=== PATIENT | male | born 1950 | race Caucasian/White ===

== ENCOUNTER → 2021-10-26 09:37 | Outpatient (CLI) | payer MEDICARE, MEDICAID, SELFPAY ==
--- NOTE | 2021-10-26 09:46 | XR_ITS ---
FINAL REPORT CLINICAL HISTORY: right hip pain FINDINGS: RIGHT HIP Three views demonstrate no acute fracture or dislocation. There are degenerative changes of both hips, left greater than right. There is postoperative changes in the lower pelvis. Residual contrast is seen in multiple presumed diverticula. Note is made of mild vascular calcification. IMPRESSION: Degenerative changes, left greater than right. Reviewed, Interpreted and Dictated by Landry Ruiz III, MD Transcribed by Kristyn George Authenticated by Landry Ruiz III, MD on 10/26/2021 11:40:56 AM [facility]
--- NOTE | 2021-10-26 09:46 | XR_ITS ---
FINAL REPORT CLINICAL HISTORY: right knee pain FINDINGS: RIGHT KNEE Four views demonstrate no acute fracture or dislocation. Mild degenerative changes are present. There is a small joint effusion. No soft tissue abnormality is seen. IMPRESSION: Mild degenerative changes and small joint effusion. Reviewed, Interpreted and Dictated by Landry Ruiz III, MD Transcribed by Kristyn George Authenticated by Landry Ruiz III, MD on 10/26/2021 11:41:06 AM [facility]
== END ==
PROVIDERS: Visit Provider Orthopaedic Surgery
DX: M25.561 Pain in right knee (principal); M25.551 Pain in right hip
CPT/HCPCS: 73502; 73564

== ENCOUNTER → 2022-05-31 11:11 | Outpatient (CLI) | payer MEDICARE, MEDICAID, SELFPAY ==
--- NOTE | 2022-05-31 11:16 | XR_ITS ---
FINAL REPORT CLINICAL HISTORY: left hip pain COMPARISON: October 26, 2021 FINDINGS: 2 views of the left hip with an AP pelvis were obtained. There is no acute fracture or dislocation. There is moderate degenerative change of the left hip. Postoperative changes are seen in the lower pelvis. IMPRESSION: Moderate left hip degenerative change. Reviewed, Interpreted and Dictated by Landry Ruiz III, MD Transcribed by Valeriy Charles Authenticated and [facility]
== END ==
PROVIDERS: Visit Provider Orthopaedic Surgery
DX: M25.552 Pain in left hip (principal)
CPT/HCPCS: 73502

== ENCOUNTER → 2022-06-15 14:41 | Outpatient (CLI) | payer MEDICARE, SELFPAY | PROVIDERS: Visit Provider Orthopaedic Surgery | DX: Z01.812 Encounter for preprocedural laboratory examination (principal); Z20.822 Contact with and (suspected) exposure to COVID-19 | CPT/HCPCS: C9803; U0003; U0005 ==

== ENCOUNTER 2022-07-15 07:46 | Day surgery (SDC) | payer MEDICARE, MEDICAID, SELFPAY ==
[2022-07-15 08:31] VITALS: BP 174/102; PULSE 58; RESP 20; TEMP 36.3; O2SAT 99; BMI 30.1
--- NOTE | 2022-07-15 09:39 | XR_ITS ---
FINAL REPORT CLINICAL HISTORY: LT HIP INJECTION IN OR FT: 1:14 FINDINGS: Two fluoroscopic spot images of the left hip were obtained. 1.14 seconds of fluoroscopy time is reported. IMPRESSION: 1.14 seconds of fluoroscopy time. Reviewed, Interpreted and Dictated by Landry Ruiz III, MD Transcribed by Carine Hall Authenticated and [facility]
[2022-07-15 09:40] VITALS: BP 118/76; PULSE 62; RESP 17; TEMP 36.8; O2SAT 90
[2022-07-15 09:50] VITALS: BP 120/71; PULSE 63; RESP 18; O2SAT 97
[2022-07-15 10:00] VITALS: BP 134/79; PULSE 56; RESP 18; O2SAT 97
[2022-07-15 10:10] VITALS: BP 139/79; PULSE 56; RESP 18; O2SAT 99
--- NOTE | 2022-07-15 10:39 | EXP.ANES.CKL ---
[facility] Medical History Atrial fibrillation COPD (chronic obstructive pulmonary disease) Deep vein thrombosis (DVT) Enlarged prostate Liver cancer Surgical History History of colon resection History of inguinal hernia repair History of myringoplasty History of organ or tissue transplant Family History (Updated 07/15/22 @ 08:29 by Kaylin Moreno RN) Father Family history of myocardial infarction Other Family history of diabetes mellitus type II Social History (Updated 07/15/22 @ 08:31 by Kaylin Moreno RN) Smoking Status: Never smoker alcohol intake: never substance use type: marijuana counseling given: No current occupational status: employed and retired Travel in the last 8 weeks: Inside the [facility] housing: house lives independently: Yes marital status: special damaris needs: No agree to transfusion: No do you feel safe at home: Yes victim of physical abuse: No victim of emotional abuse: No victim of sexual abuse: No would you like helpful sources: No [facility] Anesthesia Checklist Patient Identification Patient Identification: Verbal (Name & ) Structural Data Admitted From: Home Planned Operative Procedure/s: l hip[ injection Consent for Planned Operative Procedure(s) Verified: Yes Additional verifications Anesthesia Reactions: No Hx Blood Transfusions: No Blood Transfusion Reaction: No Airway Assessment C-Spine Mobility Assessed: Yes Dentition: Poor Dentition Neurological Assessment Level of Consciousness: Awake, Alert and Appropriate Anesthesia Plan Anesthesia Risk discussed: Yes Anesthesia Plan: Verified ASA Class: III Anesthesia Type: MAC
[2022-07-15 11:03] VITALS: TEMP 43
--- NOTE | 2022-07-15 12:04 | EXP.OP.NOTE ---
Date of procedure: 07/15/22 Pre-op Diagnosis:: Left hip arthritis Post-op Diagnosis:: Same Procedure performed:: Left hip arthrogram, fluoroscopic guided corticosteroid injection Surgeon:: Isael Moe JR, MD INSPECTOR SOLDERING:: David Murphy Anesthesia: MAC Estimated blood loss (mL): 0 Clinical Note:: 71-year-old male with left hip arthritis, had seen Dr. Fabian, Dr. Beltran subsequently, was interested in left hip fluoroscopic guided corticosteroid injection in order to delineate between hip and lumbar spine pathology as well as to provide some relief from his hip arthritis. We discussed left fluoroscopic guided hip arthrogram with corticosteroid injection. He was amenable with the plan. We discussed the risk and benefits of surgery. Risks included but were not limited to pain, bleeding, infection, damage to adjacent structures, need for further surgery, wound healing complications, loss of limb, . Patient expressed verbal consent and written consent was obtained for the above procedure. Operative findings:: Intra-articular contrast noted. Operative note:: Patient was identified in preoperative holding. Operative site was marked in indelible ink. History, physical, consent were reviewed and updated. Patient was surrendered to the anesthesia team, taken to the operative suite, placed supine on a well-padded operative table. Anesthesia was induced. The operative extremity was prepped and draped in the usual sterile fashion. The operative team donned sterile gowns and gloves and a timeout was called. All in attendance agreed regarding the patient's identity, procedure, operative site. Weight-based dose of antibiotics was given prior to incision. Under fluoroscopic guidance I placed an 18-gauge spinal needle into the hip joint via anterior approach. I palpated the femoral artery, confirmed it was not pierced. I injected contrast, noted intra-articular placement of the contrast solution, then placed 2 mL of 40 mg/mL Kenalog, 2 mL of 1% lidocaine without epinephrine, 2 mL of Marcaine without epinephrine. Sterile dressing was applied. Counts were correct x2. There were no apparent complications. I was present and scrubbed for the entire procedure. Condition: stable Disposition: PACU Complications:: None
[2022-07-16 15:16] LABS: POC Glucose,Bedside 126 (70-110)
== END 2022-07-15 10:11 | disposition home or self-care (01) ==
PROVIDERS: PCP Family Medicine; Visit Provider Orthopaedic Surgery
DX: M16.12 Unilateral primary osteoarthritis, left hip (principal); Z79.899 Other long term (current) drug therapy; I48.91 Unspecified atrial fibrillation; Z79.01 Long term (current) use of anticoagulants; Z94.4 Liver transplant status
CPT/HCPCS: 20610; 73502; 76000; 82962; Q9967

== ENCOUNTER 2022-11-15 17:00 | Outpatient (RCR) | payer MEDICARE, SELFPAY | END 2022-11-15 17:05 | disposition home or self-care (01) | LOC: PT 17:00 | PROVIDERS: PCP Family Medicine; Visit Provider Orthopaedic Surgery | DX: M54.50 Low back pain, unspecified (principal); M54.16 Radiculopathy, lumbar region; M25.552 Pain in left hip | CPT/HCPCS: 97010; 97014; 97110; 97140; 97163; 97164; 97530; G0283 ==

== ENCOUNTER 2022-12-01 11:03 | Outpatient (RCR) | payer MEDICARE, SELFPAY ==
--- NOTE | 2022-12-01 12:00 | HMH.PTOPEV ---
PT Outpatient Evaluation Rehab PT Outpatient Evaluation Start: 12/01/22 11:08 Freq: Status: Active Protocol: Document 12/01/22 11:08 SALLY (Rec: 12/01/22 11:54 SALLY [id number]) E-signed By Tea Joseph, PT Outpatient Therapy Subjective History Subjective History Pt is a 72 y/o male who reports chronic right medial knee pain for years. Pt reports worsening of right knee symptoms 2-3 months ago when his left hip/back started hurting. Pt reports he had an injection in the right knee about a month ago which helped with pain and he recently had a second injection on 11/11/22 . Pt reports the injection helped but he continues to have pain with prolonged standing and walking on level and elevated ground. Pt reports he has hills outside his home he has to traverse which aggravates pain as well. Pt reports his last xray of the right knee was in the beginning of 2021 showing mild degenerative changes and small joint effusion. Pt reports history of arthroscopic repair of the right knee 15-17 years ago but following he slipped after the surgery and reinjured it. Pt denies paresthesia of the RLE. Medical History: Atrial fibrrilation, high blood pressure, liver transplant in 2015 due to Hep C, hernia repair, R knee scope Chief Complaint Pain,Clicks,Catches/Locks Symptoms Relieved By Rest/Positioning Symptoms Aggravated By Physical Activity,Walking Prior Functional Limitations None Current Functional Limitations Standing,Sitting,Walking, Stairs Symptom Description Intermittent Level of pain today (0-10) 3 Pain scale - at its best (0-10) 0 Pain scale - at its worst (0-10) 6 Hip/Knee Eval Gait Observation General Gait Pattern Observation Antalgic Gait,Wide Based Gait,
== END 2022-12-01 11:05 | disposition home or self-care (01) ==
LOC: PT 11:03
PROVIDERS: PCP Family Medicine; Visit Provider Orthopaedic Surgery
DX: M17.11 Unilateral primary osteoarthritis, right knee (principal)
CPT/HCPCS: 97163

== ENCOUNTER → 2022-12-29 10:46 | Outpatient (CLI) | payer MEDICARE, SELFPAY ==
--- NOTE | 2022-12-29 11:08 | MR_ITS ---
FINAL REPORT CLINICAL HISTORY: SEPTIC ARTHRITIS OF LEFT HIP. HIP PAIN. PAIN WHEN WALKING COMPARISON: None FINDINGS: Multiplanar MR imaging of the left hip was performed without contrast. There is no evidence of fracture or dislocation. There is moderate left hip joint space narrowing. There is no osteochondral lesion in the lateral femoral head measuring 1.5 cm. There are mild hypertrophic changes at the lateral acetabular margin. A small joint effusion is noted. The abductor tendons are intact. IMPRESSION: Left hip joint space narrowing with osteochondral injury probably secondary to underlying osteoarthritis. Small joint effusion may be related to osteoarthritis. Reviewed, Interpreted and Dictated by Cristi Alvarado MD Transcribed by Arelis Avalos Authenticated and [facility]
== END ==
PROVIDERS: PCP Family Medicine; Visit Provider Orthopaedic Surgery
DX: M00.852 Arthritis due to other bacteria, left hip (principal); Z94.4 Liver transplant status
CPT/HCPCS: 73721

== ENCOUNTER 2023-03-02 13:03 | Day surgery (SDC) | payer MEDICARE, SELFPAY ==
[2023-01-05 14:20] VITALS: BMI 30.8
[2023-02-22 13:16] VITALS: BMI 30.7
[2023-03-02 13:35] VITALS: BP 170/93; PULSE 65; RESP 18; TEMP 36.7; O2SAT 98
--- NOTE | 2023-03-02 14:29 | EXP.ANES.CKL ---
[facility] Disclaimer: The information contained in this section may have been updated after the patient was seen, as this information can be updated by other users. Medical History Atrial fibrillation COPD (chronic obstructive pulmonary disease) Deep vein thrombosis (DVT) Enlarged prostate Liver cancer Surgical History History of ankle surgery right History of colon resection History of colostomy reversal History of inguinal hernia repair x5 History of myringoplasty History of organ or tissue transplant Hx of abdominal surgery Hx of colostomy Hx of right knee surgery Family History Father Family history of myocardial infarction Other Family history of diabetes mellitus type II Family history of hyperlipidemia Social History Smoking Status: Never smoker alcohol intake: never substance use type: marijuana counseling given: No current occupational status: employed and retired Travel in the last 8 weeks: Inside the [facility] household members: none housing: house lives independently: Yes marital status: education level: college caffeine: Yes special damaris needs: No agree to transfusion: No do you feel safe at home: Yes victim of physical abuse: No victim of emotional abuse: No victim of sexual abuse: No would you like helpful sources: No [facility] Anesthesia Checklist Patient Identification Patient Identification: Arm Band and Verbal (Name & ) Structural Data Planned Operative Procedure/s: colonoscopy Consent for Planned Operative Procedure(s) Verified: Yes Verified Documents: Surgical Consent and History and Physical NPO Status Verified Time NPO: 00:00 Additional verifications Anesthesia Reactions: No Hx Blood Transfusions: No Blood Transfusion Reaction: No Airway Assessment C-Spine Mobility Assessed: Yes TMJ Mobility Assessed: Yes Dentition: Good Dentition Neurological Assessment Level of Consciousness: Awake and Alert Hx Seizures: No Anesthesia Plan Anesthesia Risk discussed: Yes ASA Class: III Anesthesia Type: MAC
[2023-03-02 14:33] VITALS: O2SAT 98
--- NOTE | 2023-03-02 14:52 | HMH.SCOPE ---
Procedure: Date: 03/02/23 Patient Date of :: 1950 Procedure Performed:: Diagnostic colonoscopy Indications:: Change in bowel habits, chronic pain Performing Provider:: Salina Schwartz MD Referring Provider:: Deonna Castillo Sedation:: Propofol Procedure:: After placing the patient in the left lateral decubitus position, the colonoscopy was gently inserted into the rectum and under direct visualization advanced to the cecum which was identified by transillumination in the right lower quadrant, identification of the ileocecal valve, appendiceal orifice, and cecal strap. Color, texture, mucosa, and anatomy of the colon were carefully examined with the scope. Findings:: Anal canal: normal Rectum: normal Sigmoid colon: Resected. Anastomotic site widely patent. Descending colon: normal without polyps or inflammatory changes, diverticulosis Splenic flexure: normal Transverse colon: normal without polyps or inflammatory changes Hepatic flexure: normal Ascending colon: normal without polyps or inflammatory changes Cecum: normal Terminal ileum: not visualized Impression: S/P sigmoid resection anatomy with scattered residual diverticulosis. No evidence of obstruction or stenosis. Recommendations:: Follow up examination in about FIVE years or so, sooner if clinically indicated. Complications:: None Estimated blood obtained (mL): 0
[2023-03-02 14:53] VITALS: BP 110/63; PULSE 71; RESP 16; TEMP 36.3; O2SAT 96
[2023-03-02 15:03] VITALS: BP 111/61; PULSE 71; RESP 17; O2SAT 96
[2023-03-02 15:13] VITALS: BP 121/66; PULSE 64; RESP 18; O2SAT 94
[2023-03-02 15:23] VITALS: BP 137/99; PULSE 64; RESP 18; O2SAT 96
== END 2023-03-02 15:23 | disposition home or self-care (01) ==
PROVIDERS: PCP Family Medicine; Visit Provider Internal Medicine Gastroenterology
PROC: 0DJD8ZZ Inspection of Lower Intestinal Tract, Via Natural or Artificial Opening Endoscopic (ICD-10-PCS; CPT 45378; principal; 2023-03-02 13:30)
DX: K57.30 Diverticulosis of large intestine without perforation or abscess without bleeding (principal); R19.4 Change in bowel habit; Z79.899 Other long term (current) drug therapy; Z90.49 Acquired absence of other specified parts of digestive tract
CPT/HCPCS: 45378

== ENCOUNTER 2023-05-03 15:00 | Outpatient (RCR) | payer MEDICARE, SELFPAY | END 2023-05-03 15:05 | disposition home or self-care (01) | LOC: PT 15:00 | PROVIDERS: PCP Family Medicine; Visit Provider Orthopaedic Surgery | DX: M25.552 Pain in left hip (principal); Z96.642 Presence of left artificial hip joint | CPT/HCPCS: 97010; 97014; 97110; 97163; 97530; G0283 ==

== ENCOUNTER 2023-07-19 15:00 | Outpatient (RCR) | payer MEDICARE, SELFPAY ==
--- NOTE | 2023-05-16 17:10 | HMH.PTOPEV ---
PT Outpatient Evaluation Rehab PT Outpatient Evaluation Start: 05/16/23 16:54 Freq: Status: Active Protocol: Document 05/16/23 16:54 ROSI (Rec: 05/16/23 17:10 ROSI [id number]) E-signed By Yair Gerber, PT Outpatient Therapy Subjective History Subjective History This is the initial PT eval for Sharif Babin, 72 yowm who presents with c/o B knee pain, R worse than L, and recent L LUIS due to OA performed ~ 8 wks ago. He reports currently his R knee is the most painful areas and pops all the time when I bend it or squat down. He reports the pasin has been present for years, but gradually worse over the past 1-2 yrs. He reports he received B knee injection ~ 1 wk ago with a significant amount of improvement, but he continues to feel pain worse in the R knee. LEFS score: 53/80 Chief Complaint Pain,Stiff Symptom Type Ache Symptoms Relieved By Rest/Positioning Symptoms Aggravated By Standing,Walking Prior Functional Limitations None Current Functional Limitations Lifting,Housework,Standing, Squatting,Recreation Activity, Walking,Stairs Symptom Description Constant but Variable,Activity Dependent Level of pain today (0-10) 1 Pain scale - at its best (0-10) 0 Pain scale - at its worst (0-10) 4 Hip/Knee Eval Gait Observation General Gait Pattern Observation No Deviations/Normal Assistive Device Assistive Devices None / NA Palpation Tenderness right Knee Palpation Finding Tenderness Knee Palpation Overall Comment medial knee jt line 1/4 MMT bilateral Hip Flexion Strength Grade 4 Good Hip Abduction Strength Grade 4 Good Hip Adduction Strength Grade 5 Normal Hip Extension Strength Grade 4 Good Knee Extension Strength Grade 4 Good Knee Flexion Strength Grade 5 Normal ROM left Knee Extension Active Range of Motion ( 0 degrees) Knee Flexion Active Range of Motion ( 0-135 degrees) right Knee Extension Active Range of Motion ( -2 degrees) Knee Flexion Active Range of Motion ( 2-123 degrees) Special Tests Sciatic
--- NOTE | 2023-06-15 15:11 | HMH.RHREAS ---
Rehab Reassessment Rehab OP Re-assessment Start: 05/16/23 16:54 Freq: Status: Active Protocol: Document 06/15/23 15:05 PHORNE (Rec: 06/15/23 15:11 PHORNE [id number]) E-signed By Yair Gerber, PT Lower Extremity Functional Index Activities Today, do you or would you have any difficulty at all with: a.Any of your usual work, housework or A little bit of difficulty school activities b. Your usual hobbies, recreational or A little bit of difficulty sporting activities c. Getting into or out of the bath A little bit of difficulty d. Walking between rooms A little bit of difficulty e. Putting on your shoes or socks Moderate difficulty f. Squatting A little bit of difficulty g. Lifting an object, like a bag of A little bit of difficulty groceries from the floor h. Performing light activities around A little bit of difficulty your home i. Performing heavy activities around Moderate difficulty your home j. Getting into or out of a car A little bit of difficulty k. Walking 2 blocks Moderate difficulty l. Walking a mile Moderate difficulty m. Going up or down 10 stairs (about 1 Moderate difficulty flight of stairs) n. Standing for 1 hour A little bit of difficulty o. Sitting for 1 hour A little bit of difficulty p. Running on even ground Moderate difficulty q. Running on uneven ground Moderate difficulty r. Making sharp turns while running fast Moderate difficulty s. Hopping Moderate difficulty t. Rolling over in bed A little bit of difficulty LEFI Score Lower Extremity Functional Index Score 51 Rehab Re-assessment Subjective Subjective Pt reports pain in the R knee 2/10 intermittently. I just get these twinges sometimes, like if I turn my foot the wrong way when I'm walking. Objective Objective Notes R KNEE AROM: 0-131 deg R LE MMT: HIP FLEX 4+/5, HIP ABD 4+/5, HIP ADD 5/5, HIP EXT 5/5, KNEE EXT 4+/5, KNEE FLEX 5/5. TTP: R knee 0/4. Assessment Progress Assessment Progressing as Expected Assessment Notes Pt has shown improvements in overall LE strength, but continues to have mildly antalgic gait with intermittent pain. He cotninues to need skilled intervention to return to prior functional level. Patient goals met ST,2,3,4,5
--- NOTE | 2023-07-17 15:23 | HMH.RHREAS ---
Rehab Reassessment Rehab OP Re-assessment Start: 05/16/23 16:54 Freq: Status: Active Protocol: Document 07/17/23 15:12 PHOMARISA (Rec: 07/17/23 15:23 PHORNE [id number]) E-signed By Yair Gerber, PT Rehab Re-assessment Subjective Subjective I still get that pain in my right knee sometimes, and it pops a lot too. I pulled a muscle in my R thigh a few days ago walking on some uneven terrain. It feels like it's getting better, but it is still pretty stiff. Objective Objective Notes R KNEE AROM: 1-126 deg R LE MMT: HIP FLEX 4+/5, HIP ABD 4+/5, HIP ADD 5/5, HIP EXT 5/5, KNEE EXT 5/5, KNEE FLEX 5/5. TTP: R knee 0/4. Assessment Progress Assessment Progressing as Expected Assessment Notes Most likely that recen thigh muscle injury has decreased R knee AROM at this time vs previous reassessment. Pain remains limiting factor in his activity levels at home, with increased symptoms during walking. He continues to need skilled intervention to return to prior level of function. Patient goals met ST,2,3,4,5,6 Goals Not Met LT,2,3,4,5,6,7 Plan Plan Continue per initial POC. Frequency of Therapy 2 x/wk Duration of therapy 4 wks Time and Billing Re-Eval Time 15 Re-Eval Billing Units 1 PHYSICIAN CERTIFICATION: I certify the specified therapy services for Sharif Babin are required, authorized, and reviewed every 30 days.
== END 2023-07-19 15:05 | disposition home or self-care (01) ==
LOC: PT 15:00
PROVIDERS: PCP Family Medicine; Visit Provider Orthopaedic Surgery
DX: M16.12 Unilateral primary osteoarthritis, left hip (principal); Z96.642 Presence of left artificial hip joint; M17.10 Unilateral primary osteoarthritis, unspecified knee
CPT/HCPCS: 97010; 97014; 97110; 97112; 97140; 97163; 97164; 97530; 97535; G0283

== ENCOUNTER → 2023-07-26 10:51 | Outpatient (CLI) | payer MEDICARE, SELFPAY ==
--- NOTE | 2023-07-26 10:57 | XR_ITS ---
FINAL REPORT CLINICAL HISTORY: left knee pain COMPARISON: None FINDINGS: Three views of the left knee reveal no evidence of fracture or dislocation. The bony alignment is normal. There is mild degenerative change. There is no evidence of joint effusion. Vascular calcifications are noted. IMPRESSION: Mild degenerative change without acute abnormality identified. Reviewed, Interpreted and Dictated by Landry Ruiz III, MD Transcribed by Arelis Avalos Authenticated and [facility]
--- NOTE | 2023-07-26 10:57 | XR_ITS ---
FINAL REPORT CLINICAL HISTORY: right knee pain COMPARISON: 10/26/2021 FINDINGS: Three views of the right knee reveal no evidence of fracture or dislocation. The bony alignment is normal. There is [id number] degenerative change. There is medial compartment narrowing. A small joint effusion is noted. There are mild vascular calcifications. IMPRESSION: [id number] degenerative changes without acute abnormality identified. Reviewed, Interpreted and Dictated by Landry Ruiz III, MD Transcribed by Arelis Avalos Authenticated and [facility]
== END ==
PROVIDERS: PCP Family Medicine; Visit Provider Orthopaedic Surgery
DX: G89.29 Other chronic pain (principal); M25.562 Pain in left knee; M25.561 Pain in right knee
CPT/HCPCS: 73562

== ENCOUNTER 2023-09-27 09:47 | Outpatient (CLI) | payer MEDICARE, SELFPAY ==
--- NOTE | 2023-09-27 10:10 | XR_ITS ---
FINAL REPORT CLINICAL HISTORY: right knee pain COMPARISON: 07/26/2023 FINDINGS: Three views of the right knee reveal no evidence of fracture or dislocation. The bony alignment is normal. There is mild and moderate degenerative change. There is moderate medial compartment narrowing. There is no evidence of joint effusion. No localized soft tissue abnormality is identified. IMPRESSION: Mild and moderate degenerative change without acute abnormality identified. Reviewed, Interpreted and Dictated by Landry Ruiz III, MD Transcribed by Arelis Avalos Authenticated and [facility]
--- NOTE | 2023-09-27 10:10 | XR_ITS ---
FINAL REPORT CLINICAL HISTORY: left knee pain COMPARISON: 07/26/2023 FINDINGS: Three views of the left knee reveal no evidence of fracture or dislocation. The bony alignment is normal. There is mild degenerative change. There is no evidence of joint effusion. No localized acute soft tissue abnormality is seen. There are mild vascular calcifications. IMPRESSION: Mild degenerative change without acute abnormality identified. Reviewed, Interpreted and Dictated by Landry Ruiz III, MD Transcribed by Arelis Avalos Authenticated and [facility]
== END 2023-09-27 23:59 ==
PROVIDERS: PCP Family Medicine; Visit Provider Orthopaedic Surgery
DX: G89.29 Other chronic pain; M25.561 Pain in right knee; M17.12 Unilateral primary osteoarthritis, left knee
CPT/HCPCS: 73562

== ENCOUNTER 2023-12-01 13:04 | Outpatient (CLI) | payer MEDICARE, SELFPAY ==
--- NOTE | 2023-12-01 | CA_ITS ---
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 Medical History Medications: Omeprazole,,,,, Carvedilol,,,,, TAMSULOSIN,,,,, Albuterol,,,,, TACROLIMUS,,,,, RIvaROXABAN,,,,, Mycophenate Mofetil,,,,, Allergies: PENICILLINS, WARFARIN Cardiac Risk Factors: FHX of CAD Stress Test Details Test: LEXISCAN HR Resting HR: 64 bpm Max Heart Rate (APMHR): 145.798423 bpm Max HR Achieved: 91 bpm Target HR (85% APMHR): 123.819424 bpm % of APMHR: 62.76 Recovery HR: 65 bpm BP Resting BP: 150/80 mmHg Max BP: 150/80 mmHg Recovery BP: 133.0/76.0 mmHg ECG Resting ECG: AFIB, RIGHT AXIS DEVIATION, IVCD, OLD ANTEROSEPTAL ND Clinical Exercise duration: 04:00 min Highest Stage Achieved: Exercise capacity: 1.0 METs Stress ECG Conclusion PT HAD SOA, AND HEAD DISCOMFORT NO CP NO SIGNIFICANT CHANGES UNREMARKABLE LEXISCAN STRESS MYOVIEW IMAGES REPORTED SEPARATELY Test Summary REST . . . . . . . Sitting REST 03:57 . . 64 . 150/ 80 . . Stage 1 01:00 . . 74 . . . . Stage 2 01:00 . . 77 . . . . Stage 3 01:00 . . 77 . 136/ 67 . . Stage 4 01:00 . . 65 . 127/ 67 . Stop exercise at 04:00 RECOVERY 01:00 . . 60 . 147/ 72 . . RECOVERY 02:00 . . 67 . 147/ 72 . . RECOVERY 03:00 . . 70 . 142/ 79 . . RECOVERY 03:20 . . 68 . 133/ 76 . . Electronically signed by : Johnny Boyle MD 12/02/2023 09:03:46
--- NOTE | 2023-12-01 13:05 | NM_ITS ---
APPROVED REPORT Exam: Nuclear Stress Test Indication: Chest pain, SOB, Fatigue, A-fib, HTN, Family history Patient Location: Outpatient Stress Tech: Edel FRENCH Tech:Alicia BoothSHANA RT(R)(N) Ht: 5 ft 10 in Wt: 212 lbs HR: 64 bpm BP: 150/80 mmHg BSA: 2.14 m2 TID: 1.21 BMI: 30.4 History: Chest pain, SOB, Fatigue, A-fib, HTN, Family history Procedure: Patient received 0.4 mg of intravenous Lexiscan, resting heart rate 64 bpm, resting blood pressure 150/80 mmHg, with Lexiscan maximum heart rate achieved was 91 bpm which is % of the maximum predicted heart rate and blood pressure was 150/80 mmHg. With Lexiscan, patient denied any complaint of chest pain. Cardiac Stress and Resting SPECT Images: Cardiac Stress and Resting SPECT images were obtained using technetium 99m Myoview 32.0 mCi stress and 10.50 mCi at rest. Resting and stress imaging in supine and prone positions demonstrate a large sized, moderate, fixed perfusion defect in the inferior, inferoseptal, and septal LV gaston from the base and extending distally towards the inferoapical region. There is also increased transient ischemic dilatation ratio (TID 1.21), suggestive of possible multivessel disease or balanced ischemia. Gated imaging demonstrates normal global LV systolic function. There is mild hypokinesis of the inferior and septal LV gaston. LVEF is calculated at 60%. Conclusion: Large sized, moderate, fixed perfusion defect in the inferior, inferoseptal, and septal LV gaston from the base and extending distally towards the inferoapical region. There is also increased transient ischemic dilatation ratio (TID 1.21), suggestive of possible multivessel disease or balanced ischemia. Gated imaging demonstrates normal global LV systolic function. There is mild hypokinesis of the inferior and septal LV gaston. LVEF is calculated at 60%. Electronically signed by : Brunilda Velez MD 12/04/2023 22:18:36
--- NOTE | 2023-12-01 13:15 | CA_ITS ---
APPROVED REPORT EXAM: Comprehensive 2D, Doppler, and color-flow Echocardiogram Outpatient Clerk: Juany Foster, RT(R) Ht: 5 ft 10 in Wt: 212lbs BSA: 2.14 BP: 123/69 mmHg Indications: AFIB, Angina, COPD, CP, BAE, obesity, hx DVT, dyspnea, liver transplant recipient. 2D Dimensions Left Atrium 3.48 cm M: 3.0 - 4.0 LA Volume 78.60 mL LVOT 2.10 cm (M/F) 1.5-2.5 LA Volume Index 36.73 mL/m2 (M/F) 16-34 EF AP4 37.70 % GL Strain -14.1 % M-Mode Dimensions RVDd 3.04 cm (0.9-2.6) LVDd 5.52 cm (3.5-5.7) Ao Diam 3.48 cm (2.0-3.7) LVDs 3.93 cm (3.5-5.7) IVSd 0.75 cm (0.6-1.1) PWd 0.94 cm (0.6-1.1) EF (Teich) 54.90% FS 28.80% EDV (Teich) 148.70 mL ESV (Teich) 67.10 mL LV Diastology E Decel Time 150 (160-240 msec) E/A Ratio 2.5 LAT E' 6.0 (>= 10 cm/sec) E/LAT E' Ratio 13.95 (<= 14) Aortic Valve LVOT Max 83.0 (70-110 cm/s) KIM Index 1.43 cm2/m2 LVOT VTI 16.60 cm AoV Peak Ramón. 114.0 (50-130 cm/s) AO Mean GR. 2.60 (<5 mmHg) AO VTI 18.8 (18-25 cm) KIM (VTI) 3.06 (2.5-4.5 cm2) Mitral Valve MV E Max Ramón. 84.0 (40-130 cm/s) MV A Velocity 34.0 (40-130 cm/s) E/A Ratio 2.48 MV Decel. Time 150 (160-240 ms) Left Ventricle The left ventricle is normal size. The left ventricular systolic function is normal. The left ventricular ejection fraction is within the normal range. Proximal septal thickness is noted. There is normal LV segmental wall motion. The left ventricular diastolic function is normal. LVEF is 55%. Right Ventricle The right ventricle is normal size. The right ventricular systolic function is normal. Atria Left atrium is mildly dilated. Right atrium is mildly dilated. There is no Doppler evidence of interatrial shunt. Aortic Valve The aortic valve leaflets are thin and pliable. Aortic sclerosis, but no evidence of aortic stenosis. Trace aortic regurgitation. Mitral Valve The mitral valve is mildly thickened. No evidence of mitral valve stenosis. There is no mitral valve regurgitation noted. Tricuspid Valve The tricuspid valve leaflets are thin and pliable. Trace tricuspid regurgitation. There is insufficient TR jet to estimate RVSP. Pulmonic Valve The pulmonary valve is normal in structure. Trace pulmonic regurgitation. Great Vessels The aortic root is normal in size. The ascending aorta is not well visualized. The IVC is not well visualized. Pericardium There is no pericardial effusion. Other Information Study Quality: Fair Conclusion Normal biventricular systolic function. Mild biatrial dilation. No significant valvular stenosis or regurgitation. Electronically signed by : Brunilda Velez MD 12/05/2023 12:44:31
[2023-12-01] MEDS: REGADENOSON 0.4MG/5ML SYRINGE 0.400000000000000022 MG IV (15:32)
[2023-12-01] MEDS: SODIUM CHLORIDE 0.9% 10ML SYR (RAD ONLY) 10 ML IV ×2 (15:32)
[2023-12-01] MEDS: ISOTOPE MYOVIEW (PER STUDY) 1 DOSE IV (15:32)
== END 2023-12-01 23:59 ==
LOC: RAD 13:05
PROVIDERS: PCP Family Medicine; Visit Provider Nurse Practitioner
DX: R06.00 Dyspnea, unspecified (principal); M17.12 Unilateral primary osteoarthritis, left knee; I20.89 Other forms of angina pectoris; I48.91 Unspecified atrial fibrillation
CPT/HCPCS: 78452; 93017; 93018; 93306; A9502; J2785

== ENCOUNTER 2023-12-12 08:51 | Day surgery (SDC) | payer MEDICARE, SELFPAY ==
[2023-12-12] VITALS (12 sets, daily range): BP systolic 123–175; BP diastolic 56–90; PULSE 49–69; RESP 17–19; TEMP 36.6; O2SAT 95–99; BMI 31.7
--- NOTE | 2023-12-12 07:04 | IR_ITS ---
APPROVED REPORT Patient Location: Outpatient PROCEDURES Left heart catheterization Left ventriculogram Selective coronary angiogram INDICATION High risk abnormal Myoview, Angina pectoris, Informed consent was obtained prior to the procedure. COMPLICATIONS NONE Estimated Blood Loss: LESS THAN 10 ML TECHNIQUE One percent lidocaine used to anesthetize the right anterior aspect of the wrist. The right radial artery was accessed via the Seldinger technique. A 6 [place] sheath was placed in the right radial artery. 2.5 mg of Verapamil, 800 mcg of nitroglycerin, 1mg Lidocaine and 5000 U Heparin were given through the arterial sheath. The papa catheter was also used to perform left heart catheterization, left ventriculogram and selective coronary angiogram. At the end of the procedure the sheath was removed good hemostasis was achieved using Traclet band, patient was transferred to the postop holding area in stable condition. ANGIOGRAPHIC RESULTS The left main artery Has an ostial 30% stenosis and a distal eccentric 40% stenosis The left anterior descending artery Has an ostial 80% stenosis proximal multiple 80% stenoses with a mid vessel 90% stenosis The circumflex artery Gives rise to a large bifurcating ramus intermedius. The ramus has proximal 80 and 90% stenoses. The circumflex artery itself has a proximal 80% stenosis and a mid vessel 80 to 90% stenosis followed by a long tubular 80% stenosis The right coronary artery This codominant and has proximal 30% stenoses with mid vessel calcified 60% stenoses The MADRIGAL ventriculogram reveals Preserved at 55 to 60% The left ventricular end-diastolic pressure 20 mmHg IMPRESSION Severe 4 vessel coronary disease as described above Preserved ejection fraction Elevated LVEDP PLAN 1. Continue aspirin and high intensity statin 2. Refer patient to [facility] surgery for coronary bypass surgery 3. Continue risk factor modification Electronically signed by : Reid Gu MD 12/12/2023 12:46:37
[2023-12-12 09:35] LABS: Chloride 110 mmol/L (98-107); Sodium 138 mmol/L (136-145)
[2023-12-12 09:38] LABS: Blood Urea Nitrogen 20 mg/dl (9-20); Creatinine Clearance Estimated 90 mL/min (50-200); Estimated Glomerular Filt Rate 73 ml/min (>60); GFR (African American) 88 ML/MIN (>60)
[2023-12-12 09:39] LABS: Calcium 9.1 mg/dl (8.4-10.2); Carbon Dioxide 24 mmol/L (22.0-30.0); Glucose 163 mg/dl (74-100)
[2023-12-12 10:02] LABS: Basophils # 0.1 K/mm3 (0-0.2); Basophils % 0.9 % (0.1-2.0); Eosinophils # 0.2 K/mm3 (0.0-0.4); Eosinophils % 2.4 % (0.1-12.0); Hematocrit 47.3 % (42.0-52.0); Hemoglobin 15.6 g/dL (14.1-18.0); Lymphocytes # 1.8 K/mm3 (0.7-4.5); Lymphocytes % 28.4 % (10-50); Mean Corpuscular HGB Conc 33.1 g/dL (31.8-35.4); Mean Corpuscular Volume 105.8 fl (80-94); Mean Platelet Volume 8.9 fl (7.4-10.4); Monocytes # 0.5 K/mm3 (0.1-1.0); Monocytes % 7.6 % (1.7-9.3); Neutrophils # 3.9 K/mm3 (1.8-7.8); Neutrophils % 60.7 % (37.0-80.0); Platelet Count 319 K/mm3 (142-424); Red Blood Count 4.46 M/mm3 (4.60-6.20); Red Cell Distribution Width 13.6 % (11.5-17.5); White Blood Count 6.4 K/mm3 (4.8-10.8)
[2023-12-12] MEDS: NITROGLYCERIN 800MCG/8ML SYR (CATH LAB) 800 MCG IA (11:31)
[2023-12-12] MEDS: VERAPAMIL 2.5MG/ML 2ML VIAL 2.5 MG IV (11:31)
[2023-12-12] MEDS: diphenhydrAMINE 50MG/ML VIAL 50 MG IV (11:31)
[2023-12-12] MEDS: LIDOCAINE 1% 10ML MDV 20 ML IJ (11:31)
[2023-12-12] MEDS: HEPARIN 1,000 UNITS/ML 10ML VIAL (CATH LAB) 10000 UNIT IV (11:31)
[2023-12-12] MEDS: HEPARIN 1,000 UNITS/500ML NS (CATH LAB) 3000 UNIT IV (11:32)
[2023-12-12] MEDS: 0.9 % SODIUM CHLORIDE 500 ML 25 ML IV (11:32)
[2023-12-12] MEDS: MIDAZOLAM HCL 1MG/1ML 5ML VIAL 1 MG IV (11:57)
[2023-12-12] MEDS: FENTANYL 100MCG/2ML VIAL 50 MCG IV (11:58)
[2023-12-12] MEDS: IOPAMIDOL-370 (76%);100ML BOTTLE 70 ML IV (12:11)
--- NOTE | 2023-12-12 14:30 | SUR.PHASEII ---
notified of patient's bradycardia. No new orders at this time.
== END 2023-12-12 15:23 | disposition home or self-care (01) ==
LOC: CATHLAB 08:52
PROVIDERS: PCP Family Medicine; Visit Provider Internal Medicine
DX: R93.1 Abnormal findings on diagnostic imaging of heart and coronary circulation (principal); R06.00 Dyspnea, unspecified; I48.91 Unspecified atrial fibrillation; I25.118 Atherosclerotic heart disease of native coronary artery with other forms of angina pectoris; Z79.01 Long term (current) use of anticoagulants; Z79.899 Other long term (current) drug therapy; J44.9 Chronic obstructive pulmonary disease, unspecified; Z94.4 Liver transplant status
CPT/HCPCS: 80048; 85025; 93458; 99152; C1725; C1769; J1644; Q9967

== ENCOUNTER 2024-01-30 12:59 | Outpatient (RCR) | payer MEDICARE, SELFPAY | END 2024-03-22 14:00 | disposition home or self-care (01) | LOC: PT 12:59 | PROVIDERS: Visit Provider Thoracic Surgery (Cardiothoracic Vascular Surgery) | DX: I25.10 Atherosclerotic heart disease of native coronary artery without angina pectoris (principal); Z95.1 Presence of aortocoronary bypass graft | CPT/HCPCS: 93798 ==

== ENCOUNTER 2024-06-11 11:38 | Outpatient (CLI) | payer MEDICARE, SELFPAY ==
[2024-06-11 12:08] LABS: Basophils # 0.1 K/mm3 (0-0.2); Basophils % 0.7 % (0.1-2.0); Eosinophils # 0.2 K/mm3 (0.0-0.4); Eosinophils % 3.5 % (0.1-12.0); Hematocrit 47.8 % (42.0-52.0); Hemoglobin 14.8 g/dL (14.1-18.0); Lymphocytes # 1.8 K/mm3 (0.7-4.5); Mean Corpuscular Hemoglobin 32.1 pg (27.0-31.2); Mean Corpuscular Volume 103.6 fl (80-94); Mean Platelet Volume 7.2 fl (7.4-10.4); Monocytes # 0.4 K/mm3 (0.1-1.0); Monocytes % 5.8 % (1.7-9.3); Neutrophils # 4.3 K/mm3 (1.8-7.8); Platelet Count 299 K/mm3 (142-424); Red Blood Count 4.61 M/mm3 (4.60-6.20); Red Cell Distribution Width 14.2 % (11.5-17.5); White Blood Count 6.7 K/mm3 (4.8-10.8)
[2024-06-11 12:25] LABS: Albumin Level 4.2 g/dl (3.5-5.0); Chloride 110 mmol/L (98-107); Potassium 4.2 mmoL/L (3.5-5.1); Sodium 141 mmol/L (136-145)
[2024-06-11 12:27] LABS: Anion Gap 10.2 mEq/L (5-15); Blood Urea Nitrogen 21 mg/dl (9-20); Carbon Dioxide 25 mmol/L (22.0-30.0); Estimated Glomerular Filt Rate 65 ml/min (>60); GFR (African American) 79 ML/MIN (>60)
[2024-06-11 12:28] LABS: Alanine Aminotransferase 29 U/L (12-78); Alkaline Phosphatase 133 U/L (38-126); Aspartate Amino Transferase 22 U/L (17-59); Bilirubin,Direct 0.1 mg/dl (0.0-0.4); Bilirubin,Total 1.1 mg/dl (0.2-1.3); Calcium 8.9 mg/dl (8.4-10.2); Chol/HDL Ratio 2.7 (1-3.5); Cholesterol 118 mg/dl (140-200); Glucose 156 mg/dl (74-100); HDL Cholesterol 44 mg/dl (40-60); Total Protein,Serum 6.7 g/dl (6.3-8.2); Triglycerides 151 mg/dl (30-150); VLDL Cholesterol 30 mg/dL (0-40)
[2024-06-11 12:39] LABS: Direct LDL Cholesterol 42.42 mg/dL (100-129)
[2024-06-11 12:45] LABS: Free T4 (Free Thyroxine) 1.25 ng/dl (0.78-2.19)
[2024-06-11 13:01] LABS: Thyroid Stimulating Hormone 2.15 uIU/mL (0.465-4.68)
[2024-06-11 13:59] LABS: Hemoglobin A1C 7.5 % (4.0-6.0)
== END 2024-06-11 23:59 | disposition home or self-care (01) ==
LOC: LAB 11:40
PROVIDERS: PCP Family Medicine; Visit Provider Nurse Practitioner
DX: I10 Essential (primary) hypertension (principal); E78.2 Mixed hyperlipidemia; I25.10 Atherosclerotic heart disease of native coronary artery without angina pectoris; G47.33 Obstructive sleep apnea (adult) (pediatric); E78.5 Hyperlipidemia, unspecified; Z79.899 Other long term (current) drug therapy; I48.20 Chronic atrial fibrillation, unspecified; Z95.1 Presence of aortocoronary bypass graft; Z94.4 Liver transplant status
CPT/HCPCS: 36415; 80048; 80061; 80076; 83036; 84439; 84443; 85025

== ENCOUNTER → 2024-07-01 11:06 | Outpatient (CLI) | payer MEDICARE, SELFPAY | LOC: SL 11:07 | PROVIDERS: PCP Nurse Practitioner; Visit Provider Nurse Practitioner | DX: G47.33 Obstructive sleep apnea (adult) (pediatric) (principal) | CPT/HCPCS: G0399 ==

== ENCOUNTER 2024-08-02 13:16 | Outpatient (CLI) | payer MEDICARE, SELFPAY ==
--- NOTE | 2024-08-02 13:17 | CT_ITS ---
FINAL REPORT CLINICAL HISTORY: dilated asending aorta FINDINGS: Thi section axial CT images of the chest were obtained with contrast. 3D reformatted images were also obtained. This study was performed with techniques to keep radiation doses as low as reasonably achievable (ALARA). Individualized dose reduction techniques using automated exposure control or adjustment of mA and/or kV according to the patient''s size were employed. There is no evidence of pulmonary embolism. There is a 43 mm in diameter ascending aortic aneurysm present. No evidence of aortic dissection is seen. The patient has undergone a prior median sternotomy. There is no evidence of mediastinal or hilar mass or adenopathy. There is no evidence of pulmonary mass or nodule. No localized inflammatory process is seen within the lungs. Mild atelectasis or scar is present. Limited images of the upper abdomen reveal evidence of a prior cholecystectomy. There are several loose bodies identified in the right shoulder. IMPRESSION: No evidence of pulmonary embolism. 43 mm ascending aortic aneurysm is present. No evidence of an aortic dissection is seen. No mass or localized inflammatory process. Reviewed, Interpreted and Dictated by Landry Ruiz III, MD Transcribed by Zully Raines Authenticated and [facility]
[2024-08-02 13:36] LABS: Blood Urea Nitrogen 15 mg/dl (9-20); Estimated Glomerular Filt Rate 65 ml/min (>60); GFR (African American) 79 ML/MIN (>60)
[2024-08-02] MEDS: 0.9 % SODIUM CHLORIDE 50 ML VIAL IV (14:05)
[2024-08-02] MEDS: IOPAMIDOL-370 (76%);100ML BOTTLE 80 ML IV (14:06)
[2024-08-02] MEDS: SODIUM CHLORIDE 0.9% 10ML SYR (RAD ONLY) 10 ML IV (14:06)
== END 2024-08-02 23:59 | disposition home or self-care (01) ==
PROVIDERS: PCP Family Medicine; Visit Provider Internal Medicine
DX: I25.10 Atherosclerotic heart disease of native coronary artery without angina pectoris (principal); I77.810 Thoracic aortic ectasia
CPT/HCPCS: 36415; 71275; 82565; 84520; Q9967